=== PATIENT | female | born 1990 | race Two or more races ===

== ENCOUNTER 2024-11-23 20:07 | Emergency (ER) | payer OTHER ==
[~2024-11-23] VITALS: Ht 165.1 cm; Wt 62.1 kg
[2024-11-23] MEDS ORDERED: 0.9 % SODIUM CHLORIDE 1,000 ML IV ONE (20:45)
[2024-11-23] MEDS ORDERED: FAMOtidine 10 MG/ML (4ML VIAL) IV ONE (20:45)
[2024-11-23] MEDS ORDERED: FAMOTIDINE/PF 20 MG/2 ML VIAL ONE (20:47)
[2024-11-23 22:02] LABS: HEMOGLOBIN 15.6 g/dL (12.0-15.00); MEAN CELL VOLUME 94.8 fL (80.00-100.00); MEAN CORPUSCULAR HEMOGLOBIN 32.8 pg (27.00-32.0); MEAN CORPUSCULAR HGB CONC 34.6 g/dl (32.0-36.0); PLATELET COUNT 331 K/uL (150-450); RED BLOOD COUNT 4.75 M/uL (4.00-6.00); RED CELL DISTRIBUTION WIDTH 13.4 % (11.5-14.5)
[2024-11-23 22:40] LABS: INR 1.03; PARTIAL THROMBOPLASTIN TIME 27.8 SECONDS (22.0-34.0); PROTHROMBIN TIME 11.2 SECONDS (9.0-11.5)
[2024-11-23 22:52] LABS: ALBUMIN 4.9 gm/dL (3.4-5.0); ALKALINE PHOSPHATASE 78 U/L (50-136); ALT/SGPT 37 U/L (12-78); AMYLASE 41 U/L (25-115); ANION GAP 11 (10.0-20.0); AST/SGOT 22 U/L (15-37); BILIRUBIN TOTAL 0.63 mg/dL (0.3-1.2); BLOOD UREA NITROGEN 7 mg/dL (7-18); BUN CREA RATIO 13 (7.0-25.0); CALCIUM 10.3 mg/dL (8.5-10.1); CARBON DIOXIDE 25 mEq/L (21-32); CHLORIDE 104 mmol/L (98-107); CREATININE SERUM 0.56 mg/dL (0.55-1.02); GFR 123.19; GLOBULINA 4.3 G/DL (2.4-3.5); GLUCOSE FASTING 79 mg/dL (65-100); LIPASE 34 U/L (13-75); OSMOLALITY SERUM 269 MOSM/KG (275-295); SODIUM 136 mmol/L (136-145); TOTAL PROTEIN 9.2 gm/dL (6.4-8.2)
[2024-11-23 22:59] LABS: HCG QUANTITATIVE < 1 mUI/mL (1-3)
[2024-11-23] MEDS ORDERED: CIPROFLOXACIN IN 5 % DEXTROSE 400 MG/200 ML PIGGYBAG IV ONE (23:45)
[2024-11-23] MEDS ORDERED: METRONIDAZOLE/SODIUM CHLORIDE 500 MG/100 ML PIGGYBACK IV ONE (23:45)
[2024-11-24] MEDS ORDERED: METRONIDAZOLE/SODIUM CHLORIDE 500 MG/100 ML PIGGYBACK IV ONE (00:38)
[2024-11-24] MEDS ORDERED: CIPROFLOXACIN IN 5 % DEXTROSE 400 MG/200 ML PIGGYBAG IV ONE (00:38)
[2024-11-24] MEDS ORDERED: ONDANSETRON ODT8 MG PO (03:23)
[2024-11-24] MEDS ORDERED: LEVSIN/SL0.125 MG SL (03:23)
[2024-11-24] MEDS ORDERED: INTESTINEX680 M1 PO (03:23)
[2024-11-24] MEDS ORDERED: PEPCID AC20 MG PO (03:23)
== END 2024-11-24 04:46 | disposition home or self-care (01) ==
LOC: ER 20:08
PROVIDERS: General Practice
DX: K52.89 Other specified noninfective gastroenteritis and colitis (principal); K62.5 Hemorrhage of anus and rectum
CPT/HCPCS: 36415; 74177; Q9965

== ENCOUNTER 2025-07-02 19:35 | Emergency (ER) | payer OTHER ==
[~2025-07-02] VITALS: Ht 165.1 cm; Wt 67.6 kg
[~2025-07-02 19:35] MED LIST: INTESTINEX680 M1 PO; LEVSIN/SL0.125 MG SL; ONDANSETRON ODT8 MG PO; PEPCID AC20 MG PO
[2025-07-02 20:25] VITALS: BP 111/69; O2SAT 100
[2025-07-02] MEDS ORDERED: 0.9 % SODIUM CHLORIDE 1,000 ML IV STA (20:41)
[2025-07-02] MEDS ORDERED: ONDANSETRON HCL 2 MG/ML VIAL IV STA (20:41)
[2025-07-02] MEDS ORDERED: FAMOTIDINE/PF 20 MG/2 ML VIAL IV STA (20:41)
[2025-07-02] MEDS ORDERED: METOCLOPRAMIDE HCL 5 MG/ML VIAL ONE (20:45)
[2025-07-02] MEDS ORDERED: FAMOTIDINE/PF 20 MG/2 ML VIAL ONE (20:45)
[2025-07-02] MEDS ORDERED: ONDANSETRON HCL 2 MG/ML VIAL ONE (20:45)
[2025-07-02] MEDS ORDERED: METOCLOPRAMIDE HCL 5 MG/ML VIAL IV ONE (20:45)
[2025-07-02 21:19] LABS: BASO % 0.2 % (0.1-1.2); EOS # 0.21 (0.04-0.54); EOS % 1.3 % (0.7-7.0); LYMPH # 0.72 (1.18-3.74); LYMPH % 4.4 % (19.3-53.1); MEAN PLATELET VOLUME 9.90 fl (9.4-12.4); MONO # 0.54 (0.24-0.82); MONO % 3.3 % (4.7-12.5); NEUT # 14.74 (1.56-6.13); NEUT % 90.1 % (34.0-71.1); RED CELL DISTRIBUTION WIDTH 12.4 % (11.6-14.4)
[2025-07-02 21:27] LABS: ERYTHROCYTE SEDIMENTATION RATE 9 mm/hr (0-20)
[2025-07-02 21:58] LABS: INR 1.01
[2025-07-02 22:05] LABS: ALT/SGPT 40.0 U/L (12-78); AST/SGOT 15.0 U/L (15-37); BILIRUBIN TOTAL 0.65 mg/dL (0.3-1.2); BILIRUBIN,CONJUGATED 0.12 mg/dL (0.0-0.2); BUN CREA RATIO 19.0 (7.0-25.0); CREATININE SERUM 0.72 mg/dL (0.55-1.02); GFR 91.65; GLUCOSE FASTING 110.0 mg/dL (65-100); OSMOLALITY SERUM 281.0 MOSM/KG (275-295)
[2025-07-02 23:53] LABS: URINE APPEARANCE Clear; URINE BILIRRUBIN Negative (NEGATIVE); URINE BLOOD Large; URINE COLOR Dark Yellow; URINE GLUCOSE Negative (NEGATIVE); URINE KETONE Negative (NEGATIVE); URINE LEUKOCYTE Negative; URINE NITRATE Negative; URINE PROTEIN Trace (NEGATIVE); URINE UROBILINOGEN 0.2 E.U./dl
[2025-07-02 23:57] LABS: URINE BACTERIA 590.2 uL (0.0-1933); URINE EPITHELIAL CELLS 23.3 uL (0.0-38.8); URINE RBC 58.5 uL (0.0-20.8); URINE WBC 19.6 uL (0.0-23.2)
[2025-07-03 00:03] LABS: URINE CAST 0.84 uL (0.0-1.40)
[2025-07-03] MEDS ORDERED: PEPCID40 MG PO (01:12)
[2025-07-03] MEDS ORDERED: ONDANSETRON ODT8 MG PO (01:12)
[2025-07-03] MEDS ORDERED: INTESTINEX680 M2 PO (01:12)
[2025-07-03] MEDS ORDERED: CIPRO500 MG PO (01:13)
== END 2025-07-03 01:23 ==
LOC: ER 19:35
PROVIDERS: General Practice
DX: K52.89 Other specified noninfective gastroenteritis and colitis (principal)